=== PATIENT | male | born 1950 | race Caucasian/White ===

== ENCOUNTER → 2020-07-17 14:03 | Outpatient (CLI) | payer MEDICARE, BC, SELFPAY ==
[2020-07-18 10:13] LABS: COVID19 Sendout Not Detected (Not Detect)
== END ==
PROVIDERS: Visit Provider Physician Assistant
DX: Z11.59 Encounter for screening for other viral diseases (principal)
CPT/HCPCS: 87635

== ENCOUNTER 2020-09-18 14:00 | Outpatient (RCR) | payer MEDICARE, BC, SELFPAY | END 2020-09-18 15:00 | LOC: CAR 14:00 | PROVIDERS: Referring Provider Internal Medicine Cardiovascular Disease; Visit Provider Internal Medicine Cardiovascular Disease | DX: Z95.1 Presence of aortocoronary bypass graft (principal); Z95.5 Presence of coronary angioplasty implant and graft | CPT/HCPCS: 93798 ==

== ENCOUNTER → 2021-03-20 10:34 | Outpatient (CLI) | payer MEDICARE, BC, SELFPAY | PROVIDERS: Referring Provider Internal Medicine Cardiovascular Disease; Visit Provider Internal Medicine Cardiovascular Disease | DX: I48.0 Paroxysmal atrial fibrillation (principal) | CPT/HCPCS: 93005 ==

== ENCOUNTER 2021-03-21 10:04 | Emergency (ER) | payer MEDICARE, BC, SELFPAY ==
[2021-03-21] VITALS (19 sets, daily range): BP systolic 97–141; BP diastolic 55–98; PULSE 49–149; RESP 11–29; TEMP 36.7; O2SAT 95–100; BMI 27.8
--- NOTE | 2021-03-21 10:23 | DI.RAD.S_ITS ---
PROCEDURE: XR CHEST 1V INDICATIONS: chest pain TECHNIQUE: One view of the chest was acquired. COMPARISON: None. FINDINGS: Surgical changes and devices: None. Lungs and pleura: Lungs are clear. No pleural effusions or pneumothorax. Mediastinum: Mediastinal contours appear normal. Heart size is normal. Bones and chest wall: No suspicious bony lesions. Mild levoconvex scoliotic curvature is noted. Age-appropriate bony degenerative changes are seen. Overlying soft tissues appear unremarkable. IMPRESSION: Normal portable chest. Dictated by: Krishna Stone M.D. on 03/21/2021 at 9:49 Approved by: Krishna Stone M.D. on 03/21/2021 at 9:50
[2021-03-21 10:31] LABS: Add Manual Diff / Slide Review NO; Basophils Absolute Auto 0 /uL (0-100); Basophils Percent Auto 0.6 % (0-2); Eosinophils Absolute Auto 0 /uL (0-450); Eosinophils Percent Auto 0.9 % (2-4); Hemoglobin 14.9 g/dL (13.5-17.5); Lymphocytes Absolute Auto 1300 /uL (1100-4500); Lymphocytes Percent Auto 23.8 % (25-40); Mean Corpuscular HGB Conc 34.7 % (30-36); Mean Corpuscular Hemoglobin 33.5 PG (26-34); Mean Corpuscular Volume 96.6 fL (80-100); Monocytes Absolute Auto 600 /uL (0-900); Monocytes Percent Auto 11.4 % (3-14); Neutrophils Absolute Auto 3300 /uL (1500-7000); Neutrophils Percent Auto 63.3 % (50-75); Platelet Count 181 X10^3/uL (150-400); Red Blood Cell Count 4.45 X10^6/uL (4.5-5.9); White Blood Cell Count 5.2 X10^3/uL (4.5-11.0)
[2021-03-21 10:32] LABS: INR 1.2 (0.9-1.3); Prothrombin Time 13.7 SECONDS (10.1-12.7)
[2021-03-21 10:34] LABS: PTT Partial Thromboplastin Tim 34 SECONDS (26.4-36.2)
[2021-03-21 10:36] LABS: Alanine Aminotransferase 96 IU/L (<50); Albumin 4.4 g/dL (3.5-5.0); Albumin Globulin Ratio 1.5 (1.0-2.8); Alkaline Phosphatase 74 U/L (38-126); Aspartate Aminotransferase 130 IU/L (17-59); Bilirubin Total 0.8 mg/dL (0.2-1.3); Blood Urea Nitrogen 9 mg/dL (9-20); Calcium 9.3 mg/dL (8.4-10.2); Carbon Dioxide 26 mmol/L (22-32); Chloride 93 mmol/L (98-107); Creatine Kinase 97 U/L (55-170); Estimated Glomerular Filt Rate > 60.0 mL/min (>60); Globulin 2.9 g/dL (1.7-4.1); Glucose 147 mg/dL (80-110); HEMOLYSIS 19 (0-50); Lipase 49 U/L (23-300); Sodium 129 mmol/L (137-145); Total Protein 7.3 g/dL (6.3-8.2)
[2021-03-21 10:48] LABS: Troponin I < 0.012 ng/mL (0.01-0.034)
--- NOTE | 2021-03-21 10:50 | ED.ARRPALP ---
HPI - Arrhythmia/Palpitations General Chief Complaint: Arrhythmia/Palpitations Stated Complaint: AFIB Time Seen by Provider: 03/21/21 10:36 Source: patient Mode of arrival: Ambulatory Limitations: no limitations History of Present Illness HPI narrative: Patient is a 71-year-old male. Has a history of paroxysmal atrial fibrillation. Is on Eliquis and he states that he has taken it every day, 2 times a day, for at least the past year. He is here for evaluation of palpitations and irregular heart rhythm. He contacted his doctor who is out of state when the symptoms started yesterday and had an outpatient EKG yesterday. He came in today looking for cardioversion. He has had 2 cardioversions in the past. Related Data Allergies Allergy/AdvReac Type Severity Reaction Status Date / Time No Known Drug Allergies Allergy Verified 03/21/21 10:13 Review of Systems Constitutional Constitutional: Denies fatigue, Denies fever(s) and Denies headache(s) Eyes Eyes: Denies change in vision ENT Ears, Nose, Mouth, and Throat: Denies headache(s) and Denies sore throat Cardiovascular Cardiovascular: Denies chest pain, Reports rapid heart rate, Reports irregular heart rhythm and Denies dyspnea Respiratory Respiratory: Denies cough and Denies dyspnea Gastrointestinal Gastrointestinal: Denies abdominal pain, Denies nausea and Denies vomiting Genitourinary Genitourinary: Denies dysuria Genitourinary: Denies dysuria Musculoskeletal Musculoskeletal: Denies arthralgias and Denies myalgias Integumentary/Breasts Skin/Breast: Denies lesions and Denies rash Neurologic Neurologic: Denies behavioral changes and Denies headache(s) Psychiatric Psychiatric: Denies behavioral changes Endocrine Endocrine: Denies fatigue Hematologic/Lymphatic On Anticoagulants: Yes Allergic/Immunologic Allergic/Immunologic: Denies urticaria Patient History Medical History Atrial fibrillation Social History Smoking Status: Unknown if ever smoked Smoking Status: Unknown if ever smoked alcohol intake frequency: holidays/special occasions only Substance Use Type: does not use Exam Initial Vital Signs Initial Vital Signs: Vital Signs Temperature 98.1 F 03/21/21 10:08 Pulse Rate 76 03/21/21 10:08 Respiratory Rate 20 03/21/21 10:08 Blood Pressure 141/98 H 03/21/21 10:08 Pulse Oximetry 97 03/21/21 10:08 Const General: cooperative and comfortable Limitations: mental status not altered HENMT Head: normal to inspection and normocephalic Eyes General: appearance normal, both eyes and all related structures Resp Effort & Inspection: normal respiratory effort Auscultation: clear to auscultation bilaterally Cardio Rate: tachycardic Rhythm: abnormal rhythm Pulses: radial pulses present GI Palpation: soft Skin Lesions: no lesions Rashes: no rashes Neuro General: patient alert, patient awake and patient oriented x3 Cognition: normal cognition Speech: speech normal Extrem General: normal to inspection and capillary refill normal Psych Appearance: grossly normal and well kempt Procedures Cardioversion Consent Signed: Yes Indication: AFib with RVR Stability: Stable Number of attempts (shocks): 1 Joules used: 120 Cardiac rhythm post-cardioversion: Sinus rhythm Procedural Sedation Consent signed: Yes Time out performed: Yes Indication: cardioversion Presedation Evaluation: AFib with RVR ASA Class: II Mallampati Airway Classification: Class II Preparation: cardiac nurse specialist applied, pulse oximeter, capnometry used, supplemental O2 applied and suction/airway equipment at bedside Fentanyl: IV Fentanyl dose (mcg): 13 IV Propofol dose (mg): 100 Intraservice time/total sedation time (min): 10 ED Sedation Level: Moderate (Concious) Patient Tolerated Procedure: Well Interventions: Airway repositioned Course Orders Ordered: ED Orders 03/21/21 10:15 Complete Blood Count AUTO DIFF Stat Comprehensive Metabolic Panel Stat Lipase Stat Partial Thromboplastin Time Stat Prothrombin Time INR Stat Troponin & CK Cardiac Panel Stat EKG-12 Lead Stat 03/21/21 10:23 XR chest 1V Stat 03/21/21 10:24 COVID19 -Nasal swab/Pre-Proc Stat 03/21/21 10:50 EKG-12 Lead Stat RT Consult Eval and Treat Now Discontinued Medications Fentanyl (Fentanyl 100 Mcg/2 Ml Inj) 12.5 mcg IV NOW ONE Stop: 03/21/21 10:51 Last Admin: 03/21/21 11:54 Dose: 12.5 mcg Documented by: FRANCISCOS Sodium Chloride (Normal Saline 0.9%) 1,000 mls @ 125 mls/hr IV CONT NATALI Last Infusion: 03/21/21 12:43 Dose: 0 mls/hr Documented by: Admin: 03/21/21 11:45 Dose: 125 mls/hr Documented by: GILL Propofol (Propofol 200 Mg/20 Ml Vial) 100 mg IV NOW ONE Stop: 03/21/21 10:51 Last Admin: 03/21/21 11:56 Dose: 100 mg Documented by: GILL Vital Signs Vital signs: Vital Signs - 8 hr 03/21/21 10:08 03/21/21 10:10 03/21/21 10:30 Temperature 98.1 F Pulse Rate 76 77 105 H Respiratory Rate 20 18 Blood Pressure 141/98 H 141/98 H 117/76 Pulse Oximetry 97 97 98 03/21/21 11:00 03/21/21 11:30 03/21/21 11:35 Temperature Pulse Rate 102 H 92 H 110 H Respiratory Rate 11 L 16 17 Blood Pressure 114/73 107/71 110/67 Pulse Oximetry 95 97 97 03/21/21 11:40 03/21/21 11:45 03/21/21 11:50 Temperature Pulse Rate 106 H 112 H 111 H Respiratory Rate 23 17 13 Blood Pressure 115/77 120/68 109/77 Pulse Oximetry 98 97 99 03/21/21 11:55 03/21/21 12:00 03/21/21 12:05 Temperature Pulse Rate 113 H 129 H 55 L Respiratory Rate 21 18 29 H Blood Pressure 121/65 103/73 103/64 Pulse Oximetry 98 95 96 03/21/21 12:10 03/21/21 12:15 03/21/21 12:20 Temperature Pulse Rate 53 L 51 L 51 L Respiratory Rate 26 H 17 21 Blood Pressure 98/55 L 97/59 L 105/64 Pulse Oximetry 97 96 97 03/21/21 12:25 03/21/21 12:30 03/21/21 12:35 Temperature Pulse Rate 49 L 49 L 49 L Respiratory Rate 20 21 19 Blood Pressure 108/65 108/67 111/63 Pulse Oximetry 97 99 100 03/21/21 13:00 Temperature Pulse Rate 50 L Respiratory Rate 14 Blood Pressure 119/66 Pulse Oximetry 100 MDM - Arrhythmia/Palpitations Medical Records Attestation: I reviewed the patient's medical records. Lab Data Attestation: I reviewed the patient's lab results. Result diagrams: 03/21/21 10:15 03/21/21 10:15 Labs: Lab Results 03/21/21 03/21/21 03/21/21 Range/Units 10:15 10:15 10:15 WBC 5.2 (4.5-11.0) X10^3/uL RBC 4.45 L (4.5-5.9) X10^6/uL Hgb 14.9 (13.5-17.5) g/dL Hct 43.0 (41-53) % MCV 96.6 (80-100) fL MCH 33.5 (26-34) PG MCHC 34.7 (30-36) % RDW 20.0 H (11.6-14.8) % Plt Count 181 (150-400) X10^3/uL Neut % (Auto) 63.3 (50-75) % Lymph % (Auto) 23.8 L (25-40) % [place] % (Auto) 11.4 (3-14) % Eos % (Auto) 0.9 L (2-4) % Baso % (Auto) 0.6 (0-2) % Neut # (Auto) 3300 (0786-6510) /uL Lymph # (Auto) 1300 (5334-3968) /uL [place] # (Auto) 600 (0-900) /uL Eos # (Auto) 0 (0-450) /uL Baso # (Auto) 0 (0-100) /uL PT 13.7 H (10.1-12.7) SECONDS INR 1.2 (0.9-1.3) APTT 34 (26.4-36.2) SECONDS Sodium 129 L (137-145) mmol/L Potassium 4.0 (3.4-5.1) mmol/L Chloride 93 L (98-107) mmol/L Carbon Dioxide 26 (22-32) mmol/L BUN 9 (9-20) mg/dL Creatinine 0.75 (0.66-1.25) mg/dL Estimated GFR > 60.0 (>60) mL/min BUN/Creatinine Ratio 12.0 (6-22) Glucose 147 H (80-110) mg/dL Calcium 9.3 (8.4-10.2) mg/dL Total Bilirubin 0.8 (0.2-1.3) mg/dL AST 130 H (17-59) IU/L ALT 96 H (<50) IU/L Alkaline Phosphatase 74 (38-126) U/L Total Creatine Kinase 97 (55-170) U/L CK-MB (CK-2) TNP CK-MB (CK-2) Rel Index TNP Troponin I < 0.012 (0.01-0.034) ng/mL Total Protein 7.3 (6.3-8.2) g/dL Albumin 4.4 (3.5-5.0) g/dL Globulin 2.9 (1.7-4.1) g/dL Albumin/Globulin Ratio 1.5 (1.0-2.8) Lipase 49 (23-300) U/L SARS-CoV-2 (PCR) (Negative) 03/21/21 Range/Units 10:24 WBC (4.5-11.0) X10^3/uL RBC (4.5-5.9) X10^6/uL Hgb (13.5-17.5) g/dL Hct (41-53) % MCV (80-100) fL MCH (26-34) PG MCHC (30-36) % RDW (11.6-14.8) % Plt Count (150-400) X10^3/uL Neut % (Auto) (50-75) % Lymph % (Auto) (25-40) % [place] % (Auto) (3-14) % Eos % (Auto) (2-4) % Baso % (Auto) (0-2) % Neut # (Auto) (1357-2487) /uL Lymph # (Auto) (7599-5954) /uL [place] # (Auto) (0-900) /uL Eos # (Auto) (0-450) /uL Baso # (Auto) (0-100) /uL PT (10.1-12.7) SECONDS INR (0.9-1.3) APTT (26.4-36.2) SECONDS Sodium (137-145) mmol/L Potassium (3.4-5.1) mmol/L Chloride (98-107) mmol/L Carbon Dioxide (22-32) mmol/L BUN (9-20) mg/dL Creatinine (0.66-1.25) mg/dL Estimated GFR (>60) mL/min BUN/Creatinine Ratio (6-22) Glucose (80-110) mg/dL Calcium (8.4-10.2) mg/dL Total Bilirubin (0.2-1.3) mg/dL AST (17-59) IU/L ALT (<50) IU/L Alkaline Phosphatase (38-126) U/L Total Creatine Kinase (55-170) U/L CK-MB (CK-2) CK-MB (CK-2) Rel Index Troponin I (0.01-0.034) ng/mL Total Protein (6.3-8.2) g/dL Albumin (3.5-5.0) g/dL Globulin (1.7-4.1) g/dL Albumin/Globulin Ratio (1.0-2.8) Lipase (23-300) U/L SARS-CoV-2 (PCR) Negative (Negative) Imaging Data Chest x-ray: Radiologist's Impresson: [address] [id number] ReportSigned Patient: Ambrocio [facility]#: [id number]: 1950Acct:[id number]/Sex: 71 / MDate of Service: 03/21/21Loc: EDAccession Number: [id number] Procedure: XR chest 1V Ordering Provider: Cuate Toro D.O. PROCEDURE: XR CHEST 1V INDICATIONS: chest pain TECHNIQUE: One view of the chest was acquired. COMPARISON: None. FINDINGS: Surgical changes and devices: None. Lungs and pleura: Lungs are clear. No pleural effusions or pneumothorax. Mediastinum: Mediastinal contours appear normal. Heart size is normal. Bones and chest wall: No suspicious bony lesions. Mild levoconvex scoliotic curvature is noted. Age-appropriate bony degenerative changes are seen. Overlying soft tissues appear unremarkable. IMPRESSION: Normal portable chest. Dictated by: Krishna Stone M.D. on 03/21/2021 at 9:49 Approved by: Krishna Stone M.D. on 03/21/2021 at 9:50 ECG Data Attestation: I personally reviewed and interpreted this ECG as follows: Prior ECG tracings: not available for review Interpretation: Atrial fibrillation Ventricular rate of 111 Left axis deviation Normal QRS Normal QTC Incomplete right bundle-branch block Post cardioversion EKG Sinus bradycardia Ventricular rate of 55 Normal axis Normal QRS Normal QTC No ST T wave changes MDM Narrative Medical decision making narrative: Successful sedation and cardioversion. Patient was sinus rhythm afterwards. He recovered from the sedation without problems. Will have him continue all of his medications and contact his primary provider for follow-up. He was given return precautions. He expressed understanding and agreement. Discharge Plan Departure Patient Disposition: Home Clinical Impression: Atrial fibrillation, currently in sinus rhythm Instructions: DI for Atrial Fibrillation Activity Restrictions/Additional Instructions: Recommend you continue all of your medications as directed. Contact your primary provider for follow-up. Return to the emergency department for any new or worsening symptoms
[2021-03-21 11:26] LABS: COVID19 -Nasal RAPID Negative (Negative)
[2021-03-21] MEDS: SODIUM CHLORIDE 0.9% 1,000 ML 125 ML IV (11:45)
[2021-03-21] MEDS: fentaNYL 100 MCG/2 ML INJ 12.5 MCG IV (11:54)
[2021-03-21] MEDS: propofoL 200 MG/20 ML VIAL 100 MG IV (11:56)
== END 2021-03-21 13:21 | disposition home or self-care (01) ==
PROVIDERS: Emergency Provider Emergency Medicine
DX: I48.91 Unspecified atrial fibrillation (principal); Z79.01 Long term (current) use of anticoagulants; Z86.79 Personal history of other diseases of the circulatory system
CPT/HCPCS: 36415; 71045; 80053; 82550; 83690; 84484; 85025; 85610; 85730; 87635; 92960; 93005; 96360; 99152; 99285; C9803; J2704; J3010

== ENCOUNTER → 2021-04-04 11:03 | Outpatient (CLI) | payer MEDICARE, BC, SELFPAY ==
[2021-04-05 09:06] LABS: PSA Free % 32.3 % (.); PSA, Total 3.5 ng/mL (0.0-4.0)
== END ==
PROVIDERS: Referring Provider Urology; Visit Provider Urology
DX: R97.20 Elevated prostate specific antigen [PSA] (principal)
CPT/HCPCS: 36415; 84153; 84154

== ENCOUNTER → 2021-04-12 11:02 | Outpatient (CLI) | payer MEDICARE, BC, SELFPAY ==
[2021-04-13 10:37] LABS: PSA Free % 35.5 % (.); PSA, Total 3.8 ng/mL (0.0-4.0)
== END ==
PROVIDERS: Referring Provider Urology; Visit Provider Urology
DX: R97.20 Elevated prostate specific antigen [PSA] (principal)
CPT/HCPCS: 36415; 84153; 84154

== ENCOUNTER → 2021-04-17 10:35 | Outpatient (CLI) | payer MEDICARE, BC, SELFPAY ==
[2021-04-18 08:42] LABS: PSA, Total 4.3 ng/mL (0.0-4.0)
== END ==
PROVIDERS: Referring Provider Urology; Visit Provider Urology
DX: R97.20 Elevated prostate specific antigen [PSA] (principal)
CPT/HCPCS: 36415; 84153; 84154

== ENCOUNTER → 2021-04-19 10:51 | Outpatient (CLI) | payer MEDICARE, BC, SELFPAY | PROVIDERS: Referring Provider Internal Medicine Cardiovascular Disease; Visit Provider Internal Medicine Cardiovascular Disease | DX: I48.0 Paroxysmal atrial fibrillation (principal) | CPT/HCPCS: 93005 ==

== ENCOUNTER 2021-08-29 18:18 | Emergency (ER) | payer MEDICARE, BC, SELFPAY ==
[2021-08-29] VITALS (12 sets, daily range): BP systolic 133–145; BP diastolic 68–75; PULSE 55–69; RESP 16–18; TEMP 36.1; O2SAT 93–98; BMI 27.4
--- NOTE | 2021-08-29 18:28 | DI.RAD.S_ITS ---
PROCEDURE: XR PELVIS 1-2V INDICATIONS: fall down stairs v syncope TECHNIQUE: 1 view(s) of the pelvis acquired. COMPARISON: None. FINDINGS: Bones: No fractures or dislocations. No suspicious bony lesions. Soft tissues: Visualized bowel gas pattern is normal. No suspicious soft tissue calcifications. IMPRESSION: No fracture. No osseous lesion. If symptoms and/or clinical suspicion for pathology persists, further assessment with repeat radiographs (7-10 days) or advanced imaging (e.g. CT, MRI or bone scan) should be considered. Dictated by: Luana Devries MD, PhD on 08/29/2021 at 18:51 Approved by: Luana Devries MD, PhD on 08/29/2021 at 18:52
--- NOTE | 2021-08-29 18:28 | DI.RAD.S_ITS ---
PROCEDURE: XR CHEST 1V INDICATIONS: fall down stairs v syncope TECHNIQUE: One view of the chest was acquired. COMPARISON: [facility], CR, XR CHEST 1V, 03/21/2021, 10:40. FINDINGS: Surgical changes and devices: None. Lungs and pleura: Lungs are clear. No pleural effusions or pneumothorax. Mediastinum: Mediastinal contours appear normal. Heart size is normal. Bones and chest wall: No suspicious bony lesions. Overlying soft tissues appear unremarkable. IMPRESSION: No acute cardiopulmonary disease process. Dictated by: Luana Devries MD, PhD on 08/29/2021 at 18:52 Approved by: Luana Devries MD, PhD on 08/29/2021 at 18:52
--- NOTE | 2021-08-29 18:28 | DI.CT.S_ITS ---
PROCEDURE: CT CERVICAL SPINE WO CON INDICATIONS: Trauma TECHNIQUE: Noncontrast 3 mm thick sections acquired from the skull base to the T4 level. Sagittal and coronal reformats were then constructed. For radiation dose reduction, the following was used: automated exposure control, adjustment of mA and/or kV according to patient size. COMPARISON: None. FINDINGS: Image quality: Degraded by patient motion artifact. Bones: No fractures or dislocations. Visualized superior ribs are intact. Spine degenerative disc disease and facet arthropathy. Soft tissues: Prevertebral soft tissues are normal in thickness. No paravertebral hematomas. No apical pneumothoraces. IMPRESSION: No fracture. No acute osseous lesion. If symptoms and/or clinical suspicion for pathology persists, evaluation with MRI should be considered for further assessment. Dictated by: Luana Devries MD, PhD on 08/29/2021 at 19:07 Approved by: Luana Devries MD, PhD on 08/29/2021 at 19:10
--- NOTE | 2021-08-29 18:29 | ED.TRAUMA ---
HPI - Trauma General Chief Complaint: Trauma Stated Complaint: Fall, on thinners Time Seen by Provider: 08/29/21 18:18 Source: EMS Mode of arrival: EMS Limitations: no limitations History of Present Illness HPI narrative: This is a 71-year-old male who had an unwitnessed fall but was heard by his partner. Patient was coming down the steps. On the 4th or 6 steps from the floor when there was thump. Patient was confused for EMS but has improved his mentation during transit. He now knows his name, the year and age. Patient is able to answer majority of questions for myself. He does not recall the event. He does remember having drinks earlier today and states he probably had about a pint of alcohol. He states he usually has about 1 alcoholic drink nightly. Patient states he does take medication for hypertension, atrial fibrillation, dyslipidemia and diabetes. He states he takes an aspirin daily. He does not recall the name of his medications. He denies any prior surgeries. No known drug allergies. No tobacco, no illicit or recreational drugs noted. Patient denies any pain at this time. He denies any other symptoms. EMS did note he had an abrasion on his posterior scalp. He is unsure of his tetanus status. Patient states he splits his time between [place] and [place]. His primary care provider is in [place]. Related Data Allergies Allergy/AdvReac Type Severity Reaction Status Date / Time No Known Drug Allergies Allergy Verified 08/29/21 18:27 Review of Systems Review of Systems ROS Unobtainable: All systems reviewed & are unremarkable except as noted in HPI and below Patient History Medical History Atrial fibrillation Social History Smoking Status: Unknown if ever smoked Smoking Status: Unknown if ever smoked alcohol intake frequency: holidays/special occasions only Substance Use Type: does not use Exam Narrative Exam Narrative: GEN: Patient appears in mild distress. Patient does have odor of etoh on exam. HEAD: Patient has a small 1 cm abrasion on the posterior scalp, no raccoon/Hoffman sign. NECK: Nontender, painless range of motion, trachea midline Positive for Nexus criteria, there is no mid line tenderness, distracting injury, altered mental status, neuro deficit, positive for recent EtOH. EYES: PERRLA, EOMI ENT: External inspection normal, trachea is midline, TM's are normal no hemotypanum, Nares are clear, no septal hematoma, no dental or oral injury, airway is normal and with normal occlusion, No bony tenderness RESP: Chest is nontender and has symmetric movement, no ecchymosis, breath sounds are normal no crackles, wheezes or rales CVS: Heart sounds are normal, no murmur noted, No JVD. ABG/GI: Nontender, soft, normal bowel sounds, no distention, no organomegaly, pelvic rock is negative NEURO: Oriented AOx3, neuro is grossly intact, sensation and motor is normal all 4 extremities moving, cranial nerves II through XII are intact, GCS is 15 PSYCH: Normal mood and affect SKIN: Intact, warm and dry, no crepitus and without decubitus BACK: No CVA tenderness, no vertebral tenderness, no step-off's, no crepitus EXT: Atraumatic, hips are nontender, no pedal edema, normal color and temperature, normal range of motion of extremities with normal tendon exam, 2+ pulses in all four extremities Initial Vital Signs Initial Vital Signs: Vital Signs Pulse Oximetry 97 08/29/21 18:20 Scores GCS [place] coma scale eye opening: Spontaneous Phillip coma scale verbal response: Orientated Phillip coma scale motor response: Obey commands Phillip coma scale total score: 15 Course Orders Ordered: ED Orders 08/29/21 18:28 CT cervical spine wo con Stat XR chest 1V Stat XR pelvis 1-2V Stat 08/29/21 18:34 CT head/brain wo con Stat 08/29/21 18:39 Comprehensive Metabolic Panel Stat Ethanol (ETOH) Stat Lipase Stat Partial Thromboplastin Time Stat Prothrombin Time INR Stat Troponin & CK Cardiac Panel Stat 08/29/21 18:40 Complete Blood Count AUTO DIFF Stat Type and Screen Stat 08/29/21 19:01 EKG-12 Lead Stat 08/29/21 20:31 Urine Drug Screen, Rapid Stat Discontinued Medications Diphtheria/Tetanus/Acell Pertussis (Tet,Diph,Pertuss(Acell),Vac/Pf 0.5 Ml Syringe) 0.5 ml IM .ONCE ONE Stop: 08/29/21 18:33 Last Admin: 08/29/21 18:58 Dose: 0.5 ml Documented by: ANNELIESE Sodium Chloride (Normal Saline 0.9%) 1,000 mls @ 150 mls/hr IV CONT NATALI Last Admin: 08/29/21 18:58 Dose: 150 mls/hr Documented by: ANNELIESE Vital Signs Vital signs: Vital Signs - 8 hr 08/29/21 18:20 08/29/21 18:21 08/29/21 18:23 Temperature 97.0 F L Pulse Rate 69 Respiratory Rate 18 Blood Pressure 145/68 H Pulse Oximetry 97 95 08/29/21 18:30 08/29/21 19:00 08/29/21 19:30 Temperature Pulse Rate 55 L 62 61 Respiratory Rate 16 Blood Pressure 133/68 Pulse Oximetry 94 97 96 08/29/21 20:00 08/29/21 20:31 08/29/21 21:00 Temperature Pulse Rate 63 62 59 L Respiratory Rate Blood Pressure Pulse Oximetry 96 93 95 08/29/21 22:15 08/29/21 22:16 08/29/21 22:30 Temperature Pulse Rate 65 65 64 Respiratory Rate Blood Pressure 139/75 Pulse Oximetry 97 96 98 MDM - Trauma Lab Data Result diagrams: 08/29/21 18:40 08/29/21 18:39 Labs: Lab Results 08/29/21 08/29/21 08/29/21 Range/Units 18:39 18:39 18:40 WBC 6.4 (4.5-11.0) X10^3/uL RBC 4.66 (4.5-5.9) X10^6/uL Hgb 16.3 (13.5-17.5) g/dL Hct 48.4 (41-53) % MCV 103.8 H (80-100) fL MCH 34.9 H (26-34) PG MCHC 33.6 (30-36) % RDW 13.5 (11.6-14.8) % Plt Count 148 L (150-400) X10^3/uL Neut % (Auto) 42.4 L (50-75) % Lymph % (Auto) 44.5 H (25-40) % [place] % (Auto) 11.4 (3-14) % Eos % (Auto) 0.7 L (2-4) % Baso % (Auto) 1.0 (0-2) % Neut # (Auto) 2700 (0948-8380) /uL Lymph # (Auto) 2800 (2650-7397) /uL [place] # (Auto) 700 (0-900) /uL Eos # (Auto) 0 (0-450) /uL Baso # (Auto) 100 (0-100) /uL PT 11.9 (10.1-12.7) SECONDS INR 1.1 (0.9-1.3) APTT 33 (26.4-36.2) SECONDS Sodium 138 (137-145) mmol/L Potassium 3.9 (3.4-5.1) mmol/L Chloride 100 (98-107) mmol/L Carbon Dioxide 26 (22-32) mmol/L BUN 8 L (9-20) mg/dL Creatinine 0.59 L (0.66-1.25) mg/dL Estimated GFR > 60.0 (>60) mL/min BUN/Creatinine Ratio 13.6 (6-22) Glucose 95 (80-110) mg/dL Calcium 9.2 (8.4-10.2) mg/dL Total Bilirubin 1.2 (0.2-1.3) mg/dL AST 147 H (17-59) IU/L ALT 103 H (<50) IU/L Alkaline Phosphatase 93 (38-126) U/L Total Creatine Kinase 173 H (55-170) U/L CK-MB (CK-2) 1.20 (<2.37) ng/mL CK-MB (CK-2) Rel Index 0.7 L (1.5-5.0) % Troponin I < 0.012 (0.01-0.034) ng/mL Total Protein 7.5 (6.3-8.2) g/dL Albumin 4.4 (3.5-5.0) g/dL Globulin 3.1 (1.7-4.1) g/dL Albumin/Globulin Ratio 1.4 (1.0-2.8) Lipase 223 (23-300) U/L U Opiates 300ng/mL cut (Negative) Ur Oxycodone Screen (Negative) Urine Methadone Screen (Negative) Ur Barbiturates Screen (Negative) U Tricyclic Antidepress (Negative) Ur Phencyclidine Scrn (Negative) Ur Amphetamines Screen (Negative) U Methamphetamines Scrn (Negative) Ur MDMA Scrn (Ecstasy) (Negative) U Benzodiazepines Scrn (Negative) Urine Cocaine Screen (Negative) U Marijuana (THC) Screen (Negative) Ethyl Alcohol 365 H ( - 10) mg/dL Blood Type Antibody Screen 08/29/21 08/29/21 Range/Units 18:40 20:31 WBC (4.5-11.0) X10^3/uL RBC (4.5-5.9) X10^6/uL Hgb (13.5-17.5) g/dL Hct (41-53) % MCV (80-100) fL MCH (26-34) PG MCHC (30-36) % RDW (11.6-14.8) % Plt Count (150-400) X10^3/uL Neut % (Auto) (50-75) % Lymph % (Auto) (25-40) % [place] % (Auto) (3-14) % Eos % (Auto) (2-4) % Baso % (Auto) (0-2) % Neut # (Auto) (1507-6376) /uL Lymph # (Auto) (8228-0154) /uL [place] # (Auto) (0-900) /uL Eos # (Auto) (0-450) /uL Baso # (Auto) (0-100) /uL PT (10.1-12.7) SECONDS INR (0.9-1.3) APTT (26.4-36.2) SECONDS Sodium (137-145) mmol/L Potassium (3.4-5.1) mmol/L Chloride (98-107) mmol/L Carbon Dioxide (22-32) mmol/L BUN (9-20) mg/dL Creatinine (0.66-1.25) mg/dL Estimated GFR (>60) mL/min BUN/Creatinine Ratio (6-22) Glucose (80-110) mg/dL Calcium (8.4-10.2) mg/dL Total Bilirubin (0.2-1.3) mg/dL AST (17-59) IU/L ALT (<50) IU/L Alkaline Phosphatase (38-126) U/L Total Creatine Kinase (55-170) U/L CK-MB (CK-2) (<2.37) ng/mL CK-MB (CK-2) Rel Index (1.5-5.0) % Troponin I (0.01-0.034) ng/mL Total Protein (6.3-8.2) g/dL Albumin (3.5-5.0) g/dL Globulin (1.7-4.1) g/dL Albumin/Globulin Ratio (1.0-2.8) Lipase (23-300) U/L U Opiates 300ng/mL cut Negative (Negative) Ur Oxycodone Screen Negative (Negative) Urine Methadone Screen Negative (Negative) Ur Barbiturates Screen Negative (Negative) U Tricyclic Antidepress Negative (Negative) Ur Phencyclidine Scrn Negative (Negative) Ur Amphetamines Screen Negative (Negative) U Methamphetamines Scrn Negative (Negative) Ur MDMA Scrn (Ecstasy) Negative (Negative) U Benzodiazepines Scrn Negative (Negative) Urine Cocaine Screen Negative (Negative) U Marijuana (THC) Screen Negative (Negative) Ethyl Alcohol ( - 10) mg/dL Blood Type O Positive Antibody Screen Negative Urine Dip Bedside Urine Glucose Negative Bedside Urine Bilirubin - Negative Bedside Urine Ketone - Negative Urine Specific [place] 1.010 Bedside Urine Occult Blood - Negative Bedside Urine pH 6 Bedside Urine Protein - Negative Bedside Urine Urobilinogen - Negative Bedside Urine Nitrite - Negative Bedside Urine Leukocytes - Negative Esterase Imaging Data CT scan - head: Radiologist's Impression: Launch?[place] [address] CT Scan Report Signed Patient: Ambrocio Gilbert MR#: [id number] : 1950 Acct:[id number] Age/Sex: 71 / M Date of Service: 08/29/21 Loc: ED Accession Number: [id number] ?? Procedure: CT head/brain wo con Ordering Provider: Emy Dukes D.O. PROCEDURE:? CT HEAD/BRAIN WO CON ? INDICATIONS:? fall v syncope ? TECHNIQUE:? Noncontrast 4.5 mm thick angled axial sections acquired from the foramen magnum to the vertex, with coronal and sagittal reformats.? For radiation dose reduction, the following was used:? automated exposure control, adjustment of mA and/or kV according to patient size.? ? COMPARISON:? None. ? FINDINGS:? Image quality:? Excellent.? ? CSF spaces:? Basal cisterns are patent.? No extra-axial fluid collections.? The ventricles are symmetric in size and shape.? ? Brain:? No intracranial bleeds or masses.? There is cerebral volume loss for age, with resultant ventricular and sulcal prominence.? There are periventricular and deep white matter chronic small vessel ischemic changes.? There is intracranial internal carotid artery and vertebral artery atherosclerosis.? ? Skull and face:? Calvarium and visualized facial bones appear intact, without suspicious lesions.? Small right parietal scalp contusion.? ? Sinuses:? Mild mucosal thickening in the maxillary sinuses.? The mastoids are clear.? ? IMPRESSION:? No acute intracranial disease process. ? ? Dictated by: Luana Devries MD, PhD on 08/29/2021 at 19:10 ? ? Approved by: Luana Devries MD, PhD on 08/29/2021 at 19:12?? CT - cervical spine: Radiologist's Impression: [place] [id number] CT Scan Report Signed Patient: Ambrocio Gilbert MR#: [id number] : 1950 Acct:[id number] Age/Sex: 71 / M Date of Service: 08/29/21 Loc: ED Accession Number: [id number] ?? Procedure: CT cervical spine wo con Ordering Provider: Emy Dukes D.O. PROCEDURE:? CT CERVICAL SPINE WO CON ? INDICATIONS:? Trauma ? TECHNIQUE:? Noncontrast 3 mm thick sections acquired from the skull base to the T4 level.? Sagittal and coronal reformats were then constructed.? For radiation dose reduction, the following was used:? automated exposure control, adjustment of mA and/or kV according to patient size.? ? COMPARISON:? None. ? FINDINGS:? Image quality:? Degraded by patient motion artifact. ? Bones:? No fractures or dislocations.? Visualized superior ribs are intact. Spine degenerative disc disease and facet arthropathy. ? Soft tissues:? Prevertebral soft tissues are normal in thickness.? No paravertebral hematomas.? No apical pneumothoraces.? ? ? IMPRESSION:? No fracture. No acute osseous lesion. If symptoms and/or clinical suspicion for pathology persists, evaluation with MRI should be considered for further assessment. ? ? Dictated by: Luana Devries MD, PhD on 08/29/2021 at 19:07 ? ? Approved by: Luana Devries MD, PhD on 08/29/2021 at 19:10 Chest x-ray: Radiologist's Impression: [address] [address] XRay Report Signed Patient: Ambrocio Gilbert MR#: [id number] : 1950 Acct:[id number] Age/Sex: 71 / M Date of Service: 08/29/21 Loc: ED Accession Number: [id number] ?? Procedure: XR chest 1V Ordering Provider: Emy Dukes D.O. PROCEDURE:? XR CHEST 1V ? INDICATIONS:? fall down stairs v syncope ? TECHNIQUE:? One view of the chest was acquired.? ? COMPARISON:? [facility], , XR CHEST 1V, 03/21/2021, 10:40. ? FINDINGS:? ? Surgical changes and devices:? None.? ? Lungs and pleura:? Lungs are clear.? No pleural effusions or pneumothorax.? ? Mediastinum:? Mediastinal contours appear normal.? Heart size is normal.? ? Bones and chest wall:? No suspicious bony lesions.? Overlying soft tissues appear unremarkable.? ? IMPRESSION:? No acute cardiopulmonary disease process. ? ? Dictated by: Luana Devries MD, PhD on 08/29/2021 at 18:52 ? ? Approved by: Luana Devries MD, PhD on 08/29/2021 at 18:52?? [facility] xray: Radiologist's Impression: Launch?Image [address] [address] XRay Report Signed Patient: Ambrocio Gilbert MR#: [id number] : 1950 Acct:[id number] Age/Sex: 71 / M Date of Service: 08/29/21 Loc: ED Accession Number: [id number] ?? Procedure: XR pelvis 1-2V Ordering Provider: Emy Dukes D.O. PROCEDURE:? XR PELVIS 1-2V ? INDICATIONS:? fall down stairs v syncope ? TECHNIQUE:? 1 view(s) of the pelvis acquired.? ? COMPARISON:? None. ? FINDINGS:? ? Bones:? No fractures or dislocations.? No suspicious bony lesions.? ? Soft tissues:? Visualized bowel gas pattern is normal.? No suspicious soft tissue calcifications.? ? IMPRESSION:? No fracture. No osseous lesion. If symptoms and/or clinical suspicion for pathology persists, further assessment with repeat radiographs (7-10 days) or advanced imaging (e.g. CT, MRI or bone scan) should be considered. ? ? Dictated by: Luana Devries MD, PhD on 08/29/2021 at 18:51 ? ? Approved by: Luana Devries MD, PhD on 08/29/2021 at 18:52?? ECG Data Attestation: I personally reviewed and interpreted this ECG as follows: Prior ECG tracings: not available for review Interpretation: Sinus bradycardia rate of 59 ME 184 QRS of 96 and QTC of 447. No acute ST changes appreciated. No acute changes 04/19/21. MDM Narrative Medical decision making narrative: This is a 71-year-old male who was a unwitnessed but heard fall on aspirin. Unclear if patient had syncopal episode versus a fall vs other. He does state that he had approximately a pint of alcohol today. Imaging, EKG and labs obtained. Imaging shows no acute changes. EKG also shows no acute changes. Labs showed elevated alcohol. Macrocytosis and slightly low platelets. Patient does have elevation of LFTs at 147. and 103 with otherwise reassuring labs. Patient continues to be asymptomatic in the department. On initial ambulatory trial he still quite off balance. On subsequent trials later during the patient's stay he is able to ambulate with a steady gait. He does admit to drinking more alcohol and he likely should on a regular basis. Patient was medically cleared. His partner, Griffin was in contact with nursing staff and came to pick the patient up and drive him home. Discharge Plan Departure Patient Disposition: Home Clinical Impression: Abrasion of scalp, Elevated LFTs, Fall, Alcohol use Instructions: DI for Alcohol Use Disorder Activity Restrictions/Additional Instructions: Follow up with your physician for recheck. Imaging, labs and EKG are reassuring. Your liver enzymes are mildly elevated today this is likely related to your alcohol use. Your platelets are also slightly low and this is also likely related alcohol use. If you are interested in resources for assistance with alcohol abuse, you can call our social insurance analyst in the ED and ask to leave a message at [phone]. Her name is Milady and she can provide options or resources. Please return for new confusion, altered mental status, severe headaches, persistent vomiting, black or bloody stools, numbness, tingling or weakness or other new or concerning symptoms.
--- NOTE | 2021-08-29 18:34 | DI.CT.S_ITS ---
PROCEDURE: CT HEAD/BRAIN WO CON INDICATIONS: fall v syncope TECHNIQUE: Noncontrast 4.5 mm thick angled axial sections acquired from the foramen magnum to the vertex, with coronal and sagittal reformats. For radiation dose reduction, the following was used: automated exposure control, adjustment of mA and/or kV according to patient size. COMPARISON: None. FINDINGS: Image quality: Excellent. CSF spaces: Basal cisterns are patent. No extra-axial fluid collections. The ventricles are symmetric in size and shape. Brain: No intracranial bleeds or masses. There is cerebral volume loss for age, with resultant ventricular and sulcal prominence. There are periventricular and deep white matter chronic small vessel ischemic changes. There is intracranial internal carotid artery and vertebral artery atherosclerosis. Skull and face: Calvarium and visualized facial bones appear intact, without suspicious lesions. Small right parietal scalp contusion. Sinuses: Mild mucosal thickening in the maxillary sinuses. The mastoids are clear. IMPRESSION: No acute intracranial disease process. Dictated by: Luana Devries MD, PhD on 08/29/2021 at 19:10 Approved by: Luana Devries MD, PhD on 08/29/2021 at 19:12
[2021-08-29 18:49] LABS: Add Manual Diff / Slide Review NO; Basophils Absolute Auto 100 /uL (0-100); Eosinophils Absolute Auto 0 /uL (0-450); Eosinophils Percent Auto 0.7 % (2-4); Hematocrit 48.4 % (41-53); Hemoglobin 16.3 g/dL (13.5-17.5); Lymphocytes Absolute Auto 2800 /uL (1100-4500); Lymphocytes Percent Auto 44.5 % (25-40); Mean Corpuscular HGB Conc 33.6 % (30-36); Mean Corpuscular Hemoglobin 34.9 PG (26-34); Mean Corpuscular Volume 103.8 fL (80-100); Monocytes Absolute Auto 700 /uL (0-900); Monocytes Percent Auto 11.4 % (3-14); Neutrophils Absolute Auto 2700 /uL (1500-7000); Neutrophils Percent Auto 42.4 % (50-75); Platelet Count 148 X10^3/uL (150-400); Red Blood Cell Count 4.66 X10^6/uL (4.5-5.9); Red Cell Distribution Width 13.5 % (11.6-14.8); White Blood Cell Count 6.4 X10^3/uL (4.5-11.0)
[2021-08-29 18:50] LABS: INR 1.1 (0.9-1.3); Prothrombin Time 11.9 SECONDS (10.1-12.7)
[2021-08-29 18:53] LABS: PTT Partial Thromboplastin Tim 33 SECONDS (26.4-36.2)
[2021-08-29] MEDS: SODIUM CHLORIDE 0.9% 1,000 ML 150 ML IV (18:58)
[2021-08-29] MEDS: TET,DIPH,PERTUSS(ACELL),VAC/PF 0.5 ML SYRINGE IM (18:58)
[2021-08-29 19:17] LABS: Alanine Aminotransferase 103 IU/L (<50); Albumin 4.4 g/dL (3.5-5.0); Albumin Globulin Ratio 1.4 (1.0-2.8); Alkaline Phosphatase 93 U/L (38-126); Aspartate Aminotransferase 147 IU/L (17-59); BUN Creatinine Ratio 13.6 (6-22); Bilirubin Total 1.2 mg/dL (0.2-1.3); Blood Urea Nitrogen 8 mg/dL (9-20); Calcium 9.2 mg/dL (8.4-10.2); Carbon Dioxide 26 mmol/L (22-32); Chloride 100 mmol/L (98-107); Creatine Kinase 173 U/L (55-170); Estimated Glomerular Filt Rate > 60.0 mL/min (>60); Globulin 3.1 g/dL (1.7-4.1); Glucose 95 mg/dL (80-110); HEMOLYSIS < 15 (0-50); Lipase 223 U/L (23-300); Potassium 3.9 mmol/L (3.4-5.1); Sodium 138 mmol/L (137-145); Total Protein 7.5 g/dL (6.3-8.2)
[2021-08-29 19:24] LABS: Ethanol (ETOH) 365 mg/dL
[2021-08-29 19:28] LABS: Troponin I < 0.012 ng/mL (0.01-0.034)
[2021-08-29 19:31] LABS: CKMB % Relative Index 0.7 % (1.5-5.0)
[2021-08-29 20:49] LABS: UR Morphine/Opiate cutoff 300 Negative (Negative); Ur Creatinine Normal (Normal); Ur Specific Gravity Normal (Normal); Urine Amphetamines Negative (Negative); Urine Barbiturates Negative (Negative); Urine Benzodiazepines Negative (Negative); Urine Cocaine Negative (Negative); Urine MDMA Negative (Negative); Urine Methadone Negative (Negative); Urine Methamphetamines Negative (Negative); Urine Oxycodone Negative (Negative); Urine Phencyclidine Negative (Negative); Urine Tetrahydrocannabinol Negative (Negative); Urine Tricyclic Antidepressant Negative (Negative); Urine pH Normal (Normal)
--- NOTE | 2021-09-21 12:57 | PC.NURSE ---
late entry per RN IV fluids DC'd at 2200 prior to discharge
== END 2021-08-29 22:42 | disposition home or self-care (01) ==
PROVIDERS: Emergency Provider Emergency Medicine
DX: S00.01XA Abrasion of scalp, initial encounter (principal); R79.89 Other specified abnormal findings of blood chemistry; Z72.89 Other problems related to lifestyle; Z79.82 Long term (current) use of aspirin; Z20.822 Contact with and (suspected) exposure to COVID-19; R41.0 Disorientation, unspecified; Z23 Encounter for immunization; R00.1 Bradycardia, unspecified
CPT/HCPCS: 36415; 70450; 71045; 72125; 72170; 80053; 80305; 80320; 81003; 82550; 82553; 83690; 84484; 85025; 85610; 85730; 86850; 86900; 86901; 90471; 93005; 93010; 96360; 96361; 99285; 90715

== ENCOUNTER 2022-06-03 10:15 | Outpatient (RCR) | payer MEDICARE, BC, SELFPAY | END 2022-06-03 14:00 | LOC: CAR 10:15 | PROVIDERS: Referring Provider Internal Medicine Cardiovascular Disease; Visit Provider Internal Medicine Cardiovascular Disease | DX: Z95.2 Presence of prosthetic heart valve (principal) | CPT/HCPCS: 93798 ==

== ENCOUNTER → 2023-02-24 14:51 | Outpatient (CLI) | payer MEDICARE, BC, SELFPAY ==
[2023-02-24 16:53] LABS: Alanine Aminotransferase 27 IU/L (<50); Albumin 4.2 g/dL (3.5-5.0); Albumin Globulin Ratio 1.3 (1.0-2.8); Alkaline Phosphatase 71 U/L (38-126); Aspartate Aminotransferase 34 IU/L (17-59); BUN Creatinine Ratio 8.1 (6-22); Bilirubin Total 1.2 mg/dL (0.2-1.3); Blood Urea Nitrogen 8 mg/dL (9-20); Calcium 9.3 mg/dL (8.4-10.2); Carbon Dioxide 26 mmol/L (22-32); Chloride 87 mmol/L (98-107); Estimated Glomerular Filt Rate > 60 mL/min (>60); Globulin 3.3 g/dL (1.7-4.1); Glucose 88 mg/dL (80-110); HEMOLYSIS < 15 (0-50); Potassium 4.2 mmol/L (3.4-5.1); Sodium 122 mmol/L (137-145); Total Protein 7.5 g/dL (6.3-8.2)
== END ==
PROVIDERS: Referring Provider Hospitalist; Visit Provider Hospitalist
DX: N17.9 Acute kidney failure, unspecified (principal)
CPT/HCPCS: 36415; 80053

== ENCOUNTER 2023-02-27 10:24 | Emergency (ER) | payer MEDICARE, BC, SELFPAY ==
[2023-02-27 10:28] VITALS: BP 155/81; PULSE 81; RESP 15; TEMP 36.1; O2SAT 99; BMI 27.4
--- NOTE | 2023-02-27 10:28 | ED.GENADULT ---
HPI - General Adult General Chief complaint: Recheck/Abnormal Lab/Rx Stated complaint: sodium level low Time Seen by Provider: 02/27/23 10:27 History of Present Illness HPI narrative: 73-year-old male nonsmoker with history of hypertension and hyperlipidemia, prior alcohol use presents for evaluation of abnormal labs. He states that he had routine labs that have been ordered by his primary care provider [place] of [place]. He states that his doctor called him today and told him to present to the emergency department because his sodium was low. The patient denies any symptoms whatsoever such as dizziness, weakness or lightheadedness. He denies any confusion, extremity numbness, tingling or weakness. He is had no nausea, vomiting or diarrhea. He denies the use of any diuretics. He states that he drinks a fair amount of water but has not changed his diet in any meaningful way recently. Related Data Allergies Allergy/AdvReac Type Severity Reaction Status Date / Time No Known Drug Allergies Allergy Verified 02/27/23 10:33 Patient History Medical History Atrial fibrillation Social History Smoking Status: Unknown if ever smoked Smoking Status: Unknown if ever smoked alcohol intake frequency: holidays/special occasions only Substance Use Type: does not use Exam Narrative Exam Narrative: GENERAL: [73] year old patient appears stated age. Well-developed patient, in mild distress. HEAD: Atraumatic. Normocephalic. EYES: Pupils equal round and reactive. Extraocular motions intact. No scleral icterus. No injection or drainage. ENT: Nose without bleeding, purulent drainage. Throat without erythema, tonsillar hypertrophy or exudate. Airway patent. NECK: Trachea midline. Non tender CARDIOVASCULAR: Regular rate and rhythm without murmurs, gallops, or rubs. RESPIRATORY: Clear to auscultation. Breath sounds equal bilaterally. No wheezes, rales, or rhonchi. GASTROINTESTINAL: Abdomen soft, non-tender, nondistended. EXTREMITIES: No edema or joint tenderness. BACK: Nontender without deformity or crepitance. No flank tenderness. NEURO: AOx3. SKIN: No rash or erythema of visible areas Initial Vital Signs Initial Vital Signs: Vital Signs Temperature 97.0 F L 02/27/23 10:28 Pulse Rate 81 04/13/23 10:28 Respiratory Rate 15 02/27/23 10:28 Blood Pressure 155/81 H 02/27/23 10:28 Pulse Oximetry 99 02/27/23 10:28 Oxygen Delivery Method Room Air 02/27/23 10:28 Course Orders Ordered: ED Orders 02/27/23 10:40 Complete Blood Count AUTO DIFF Stat Comprehensive Metabolic Panel Stat Vital Signs Vital signs: Vital Signs - 8 hr 02/27/23 11:41 Pulse Rate 74 Respiratory Rate 18 Blood Pressure 142/79 H Pulse Oximetry 99 Oxygen Delivery Method Room Air Medical Decision Making Lab Data 02/27/23 10:40 02/27/23 10:40 Labs: Lab Results 02/27/23 02/27/23 Range/Units 10:40 10:40 WBC 5.9 (4.5-11.0) X10^3/uL RBC 4.25 L (4.5-5.9) X10^6/uL Hgb 13.5 (13.5-17.5) g/dL Hct 39.2 L (41-53) % MCV 92.1 (80-100) fL MCH 31.6 (26-34) PG MCHC 34.4 (30-36) % RDW 19.0 H (11.6-14.8) % Plt Count 164 (150-400) X10^3/uL Neut % (Auto) 49.5 L (50-75) % Lymph % (Auto) 37.0 (25-40) % [place] % (Auto) 11.8 (3-14) % Eos % (Auto) 1.1 L (2-4) % Baso % (Auto) 0.6 (0-2) % Neut # (Auto) 2900 (3807-3516) /uL Lymph # (Auto) 2200 (8749-9490) /uL [place] # (Auto) 700 (0-900) /uL Eos # (Auto) 100 (0-450) /uL Baso # (Auto) 0 (0-100) /uL Sodium 126 L (137-145) mmol/L Potassium 4.1 (3.4-5.1) mmol/L Chloride 92 L (98-107) mmol/L Carbon Dioxide 25 (22-32) mmol/L BUN 7 L (9-20) mg/dL Creatinine 1.03 (0.66-1.25) mg/dL Estimated GFR > 60 (>60) mL/min BUN/Creatinine Ratio 6.8 (6-22) Glucose 142 H (80-110) mg/dL Calcium 9.2 (8.4-10.2) mg/dL Total Bilirubin 0.9 (0.2-1.3) mg/dL AST 39 (17-59) IU/L ALT 29 (<50) IU/L Alkaline Phosphatase 72 (38-126) U/L Total Protein 8.1 (6.3-8.2) g/dL Albumin 4.4 (3.5-5.0) g/dL Globulin 3.7 (1.7-4.1) g/dL Albumin/Globulin Ratio 1.2 (1.0-2.8) MDM Narrative Medical decision making narrative: [73] year old patient presents with report of abnormal labs in the absence of any symptoms Multiple etiologies for patient's symptoms considered including, but not limited to: [Hyponatremia due to medications, oral intake of water versus other] Prior Charts reviewed in our EMR Primary Historian: patient Labs reviewed and interpreted by myself: Sodium today is 126, a few days ago when drawn it was 122, patient states that he routinely is low in the mid to upper 120s. He is completely asymptomatic and well-appearing Patient is completely asymptomatic, he takes no diuretics, he has had no vomiting. He denies dizziness, weakness or lightheadedness. Sodium is improved over prior and back to within his normal. There is no indication for further evaluation at this time. Findings and discharge diagnosis discussed with patient/family followed by verbalization of understanding Return precautions discussed with patient/family whom verbalize understanding of diagnosis and plan Discharge Plan Departure Patient Disposition: Home Clinical Impression: Acute hyponatremia Instructions: Hyponatremia-Adult Activity Restrictions/Additional Instructions: *You have been diagnosed with [hyponatremia. Your history and physical exam are very reassuring. Your sodium today is 126, when drawn a few days ago it was 122. There is little to do at this point, particularly given your lack of symtpoms *What to do: *Please continue to take your regular medications as directed. *Please follow up with your primary care provider in 2-3 days, call for an appointment. Let them know you were seen in the Emergency Department and that we ask that you be seen in follow up. We will electronically transmit a record of today's note if your PCP is in our system *If you do not have a primary care provider please contact the [facility] Resource line at [phone]. They will ask some questions about your medical history and help get you set up with a doctor in the community. *Return to Emergency Department if you should have any new, worsening or concerning symptoms, such as [fever greater than 101 F, shaking chills, worsening pain, persistent vomiting or other bothersome symptoms] Referrals: Miscellaneous,Doctor, MD [Primary Care Provider] - Stand Alone Forms: Patient Portal/API
[2023-02-27 10:52] LABS: Add Manual Diff / Slide Review NO; Basophils Absolute Auto 0 /uL (0-100); Basophils Percent Auto 0.6 % (0-2); Eosinophils Absolute Auto 100 /uL (0-450); Eosinophils Percent Auto 1.1 % (2-4); Hematocrit 39.2 % (41-53); Hemoglobin 13.5 g/dL (13.5-17.5); Lymphocytes Absolute Auto 2200 /uL (1100-4500); Mean Corpuscular HGB Conc 34.4 % (30-36); Mean Corpuscular Hemoglobin 31.6 PG (26-34); Mean Corpuscular Volume 92.1 fL (80-100); Monocytes Absolute Auto 700 /uL (0-900); Monocytes Percent Auto 11.8 % (3-14); Neutrophils Absolute Auto 2900 /uL (1500-7000); Neutrophils Percent Auto 49.5 % (50-75); Platelet Count 164 X10^3/uL (150-400); Red Blood Cell Count 4.25 X10^6/uL (4.5-5.9); White Blood Cell Count 5.9 X10^3/uL (4.5-11.0)
[2023-02-27 11:12] LABS: Alanine Aminotransferase 29 IU/L (<50); Albumin 4.4 g/dL (3.5-5.0); Albumin Globulin Ratio 1.2 (1.0-2.8); Alkaline Phosphatase 72 U/L (38-126); Aspartate Aminotransferase 39 IU/L (17-59); BUN Creatinine Ratio 6.8 (6-22); Bilirubin Total 0.9 mg/dL (0.2-1.3); Blood Urea Nitrogen 7 mg/dL (9-20); Calcium 9.2 mg/dL (8.4-10.2); Carbon Dioxide 25 mmol/L (22-32); Chloride 92 mmol/L (98-107); Estimated Glomerular Filt Rate > 60 mL/min (>60); Globulin 3.7 g/dL (1.7-4.1); Glucose 142 mg/dL (80-110); HEMOLYSIS < 15 (0-50); Potassium 4.1 mmol/L (3.4-5.1); Sodium 126 mmol/L (137-145); Total Protein 8.1 g/dL (6.3-8.2)
[2023-02-27 11:41] VITALS: BP 142/79; PULSE 74; RESP 18; O2SAT 99
== END 2023-02-27 11:42 | disposition home or self-care (01) ==
PROVIDERS: Emergency Provider Emergency Medicine
DX: E87.1 Hypo-osmolality and hyponatremia (principal)
CPT/HCPCS: 36415; 80053; 85025; 99283

== ENCOUNTER → 2023-06-18 12:55 | Outpatient (CLI) | payer MEDICARE, BC, SELFPAY ==
[2023-06-18 13:32] LABS: Add Manual Diff / Slide Review NO; Basophils Absolute Auto 0 /uL (0-100); Basophils Percent Auto 0.5 % (0-2); Eosinophils Absolute Auto 0 /uL (0-450); Eosinophils Percent Auto 0.6 % (2-4); Hemoglobin 13.1 g/dL (13.5-17.5); Lymphocytes Absolute Auto 1500 /uL (1100-4500); Lymphocytes Percent Auto 26.6 % (25-40); Mean Corpuscular HGB Conc 34.5 % (30-36); Mean Corpuscular Hemoglobin 32.8 PG (26-34); Monocytes Absolute Auto 800 /uL (0-900); Monocytes Percent Auto 13.3 % (3-14); Neutrophils Absolute Auto 3400 /uL (1500-7000); Platelet Count 98 X10^3/uL (150-400); Red Cell Distribution Width 16.6 % (11.6-14.8); White Blood Cell Count 5.7 X10^3/uL (4.5-11.0)
[2023-06-18 13:40] LABS: BUN Creatinine Ratio 6.7 (6-22); Blood Urea Nitrogen 25 mg/dL (9-20); Calcium 9.6 mg/dL (8.4-10.2); Carbon Dioxide 24 mmol/L (22-32); Chloride 102 mmol/L (98-107); Cholesterol 154 mg/dL (140-199); Estimated Glomerular Filt Rate 16 mL/min (>60); Glucose 89 mg/dL (80-110); HDL Cholesterol 103 mg/dL (40-60); HEMOLYSIS < 15 (0-50); LDL Cholesterol Calculated 40 mg/dL (<100); Potassium 3.1 mmol/L (3.4-5.1); Sodium 138 mmol/L (137-145); Triglycerides 56 mg/dL (35-150)
== END ==
PROVIDERS: Referring Provider Internal Medicine Cardiovascular Disease; Visit Provider Internal Medicine Cardiovascular Disease
DX: E78.5 Hyperlipidemia, unspecified (principal); I10 Essential (primary) hypertension
CPT/HCPCS: 36415; 80048; 80061; 85025

== ENCOUNTER → 2023-06-26 07:53 | Outpatient (CLI) | payer MEDICARE, BC, SELFPAY ==
[2023-06-26 09:11] LABS: Albumin 3.9 g/dL (3.5-5.0); HEMOLYSIS < 15 (0-50)
[2023-06-27 08:46] LABS: BUN Creatinine Ratio 9.8 (6-22); Blood Urea Nitrogen 23 mg/dL (9-20); Calcium 8.9 mg/dL (8.4-10.2); Carbon Dioxide 27 mmol/L (22-32); Chloride 92 mmol/L (98-107); Estimated Glomerular Filt Rate 29 mL/min (>60); Glucose 81 mg/dL (80-110); Phosphorous 2.3 mg/dL (2.3-3.7); Sodium 131 mmol/L (137-145)
== END ==
PROVIDERS: Referring Provider Internal Medicine Cardiovascular Disease; Visit Provider Internal Medicine Cardiovascular Disease
DX: N28.9 Disorder of kidney and ureter, unspecified (principal)
CPT/HCPCS: 36415; 80069; 80076

== ENCOUNTER 2023-07-26 19:46 | Emergency (ER) | payer MEDICARE, BC, SELFPAY ==
[2023-07-26] VITALS (37 sets, daily range): BP systolic 132–195; BP diastolic 70–90; PULSE 70–106; RESP 9–34; TEMP 36.6–36.8; O2SAT 93–100; BMI 27.8
--- NOTE | 2023-07-26 19:53 | DI.CT.S_ITS ---
PROCEDURE: CT CERVICAL SPINE WO CON INDICATIONS: Fall. TECHNIQUE: Noncontrast 3 mm thick sections acquired from the skull base to the T4 level. Sagittal and coronal reformats were then constructed. For radiation dose reduction, the following was used: automated exposure control, adjustment of mA and/or kV according to patient size. COMPARISON: [facility], CT, CT CERVICAL SPINE WO CON, 08/29/2021, 18:40. FINDINGS: Image quality: Excellent. Bones: No fractures or dislocations. Visualized superior ribs are intact. Soft tissues: Prevertebral soft tissues are normal in thickness. No paravertebral hematomas. No apical pneumothoraces. Please refer to head CT report from same day discussing posttraumatic intracranial hemorrhage. IMPRESSION: No acute trauma to the cervical spine. Intracranial posttraumatic hemorrhage is described during CT report of head same day. Dictated by: Dhaval Evans M.D. on 07/26/2023 at 20:28 Approved by: Dhaval Evans M.D. on 07/26/2023 at 20:28
--- NOTE | 2023-07-26 19:53 | DI.CT.S_ITS ---
PROCEDURE: CT HEAD/BRAIN WO CON INDICATIONS: Fall on blood thinners TECHNIQUE: Noncontrast 4.5 mm thick angled axial sections acquired from the foramen magnum to the vertex, with coronal and sagittal reformats. For radiation dose reduction, the following was used: automated exposure control, adjustment of mA and/or kV according to patient size. COMPARISON: [facility], CT, CT CERVICAL SPINE WO CON, 07/26/2023, 19:56. [facility], CT, CT HEAD/BRAIN WO CON, 08/29/2021, 18:40. FINDINGS: Image quality: Excellent. CSF spaces: Basal cisterns are patent. No extra-axial fluid collections. The ventricles are asymmetric in size and shape mildly smaller on the left due to mass effect from a combination of a thin left frontal subdural hemorrhage in addition to subarachnoid hemorrhage into the inter hemispheric falx area, interdigitating between the sulci of the frontal lobes bilaterally greater on the left than the right, and also extending into the basilar cisterns and subarachnoid space at the anterior inferior border of the left temporal lobe, but intraventricular hemorrhage is not seen. There is slight mass effect shifting the midline falx from left to right anteriorly.. Brain: No intracranial masses. Superimposed there is cerebral volume loss for age, with resultant ventricular and sulcal prominence. There are periventricular and deep white matter chronic small vessel ischemic changes. There is intracranial internal carotid artery atherosclerosis. Skull and face: Calvarium and visualized facial bones appear intact, without suspicious lesions. Sinuses: Visualized sinuses and mastoids are clear. IMPRESSION: Posttraumatic combined subarachnoid hemorrhage and a thin left frontal region subdural hemorrhage is superimposed, with mild mass effect deviating the midline falx from left to right. Slight compression of the left lateral ventricle. A small amount of hemorrhage in the subarachnoid space extends into the basilar cisterns including along the right posterolateral border of the pontine portion of the brainstem. No calvarial fracture is found, no facial trauma or hemorrhage is seen. Findings immediately called to and discussed with the emergency room physician caring for the patient Dictated by: Dhaval Evans M.D. on 07/26/2023 at 20:21 Approved by: Dhaval Evans M.D. on 07/26/2023 at 20:26
--- NOTE | 2023-07-26 20:21 | ED.GENADULT ---
HPI - General Adult General Chief complaint: Trauma Stated complaint: fall down 9 steps Time Seen by Provider: 07/26/23 19:53 Source: patient and EMS Mode of arrival: EMS Limitations: altered mental status History of Present Illness HPI narrative: Patient is a 73-year-old male. Arrives to the emergency department in a cervical collar and on a backboard for evaluation of injuries that he sustained with a reported fall down a possible 9 stairs. It was reported positive alcohol intake. Patient was maintaining on respirations. Was following commands although was obviously intoxicated. Had no reported complaints. No signs of external injuries. HPI and review of systems limited secondary to his alcohol intoxication. Related Data Home Medications Medication Instructions Recorded Confirmed atorvastatin 80 mg tablet 80 mg PO DAILY 07/26/23 07/26/23 olmesartan 40 mg tablet 40 mg PO DAILY 07/26/23 07/26/23 omeprazole 10 mg capsule,delayed 10 mg PO DAILY PRN Hiccups 07/26/23 07/26/23 release potassium chloride 20 mEq 20 meq PO DAILY 07/26/23 07/26/23 tablet,extended release(part/cryst) Allergies Allergy/AdvReac Type Severity Reaction Status Date / Time No Known Drug Allergies Allergy Verified 07/26/23 19:59 Review of Systems Review of Systems Narrative: Limited secondary to his alcohol intoxication however Patient denies Chest pain Shortness of breath Abdominal pain Headache Extremity pain Patient History Medical History Atrial fibrillation Social History Smoking Status: Unknown if ever smoked Smoking Status: Unknown if ever smoked alcohol intake frequency: holidays/special occasions only Substance Use Type: does not use Exam Initial Vital Signs Initial Vital Signs: Vital Signs Temperature 97.8 F 07/26/23 19:45 Pulse Rate 76 07/26/23 19:45 Respiratory Rate 18 07/26/23 19:45 Blood Pressure 132/70 07/26/23 19:45 Pulse Oximetry 95 07/26/23 19:45 Oxygen Delivery Method Room Air 07/26/23 19:45 Const General: No acute distress and No ill appearing HENMT Head: normal to inspection and normocephalic Eyes Pupils: PERRL and pupil size bilaterally 4 Chest Chest: No crepitus Resp Effort & Inspection: normal respiratory effort Auscultation: clear to auscultation bilaterally Cardio Rate: regular rate Rhythm: regular rhythm GI Inspection: normal to inspection and non-distended Palpation: soft, No firm and No guarding Back/Spine/Pelvis Cervical Spine: collar present Thoracic/Lumbar Spine: No thoracic spinal tenderness and No lumbar spinal tenderness Skin Other: No bruising noted Neuro Other: Patient was following commands. Opens eyes spontaneously, states he knows where he is but could not specifically state that he was in the hospital. Extrem Other: No gross deformities Procedures Intubation Time out performed: Yes sedative: Etomidate Mg Given: 20 paralytic: Succinylcholine Mg Given: 120 Laryngoscope: other (Video) ET Tube Size: 7.5 ET Tube Uncuffed: No Tube Secured Depth (cm): 21 Tube Secured Location: teeth Tube Placement Confirmation: Visualized tube passing through cords, Equal breath sounds bilaterally, Confirmation by capnometry and Chest Xray Patient Tolerated Procedure: Well Intubation Complications: none Scores GCS Phillip coma scale eye opening: Spontaneous [place] coma scale verbal response: Confused [place] coma scale motor response: Obey commands Phillip coma scale total score: 14 Course Orders Ordered: ED Orders 07/26/23 19:53 CT cervical spine wo con Stat CT head/brain wo con Stat 07/26/23 20:15 Complete Blood Count AUTO DIFF Stat Comprehensive Metabolic Panel Stat ETOH [Ethanol (ETOH)] Stat Lipase Stat PTT Partial Thromboplastin Miguel Stat Prothrombin Time INR Stat 07/26/23 20:22 EKG-12 Lead Stat 07/26/23 20:25 CT chest abd pel w con Stat 07/26/23 20:52 COVID19 -Nasal RAPID Stat 07/26/23 21:05 XR chest 1V Stat Propofol (Propofol) 1,000 mg in 100 mls @ 2.49 mls/hr IV TITRATE NATALI; Protocol Last Admin: 07/26/23 21:05 Dose: 10 mcg/kg/min, 4.98 mls/hr Documented By: SILVER Sodium Chloride (Normal Saline 0.9%) 1,000 mls @ 150 mls/hr IV BOLUS ONE Stop: 07/27/23 03:41 Last Admin: 07/26/23 21:03 Dose: 150 mls/hr Documented By: SILVER Discontinued Medications Etomidate (Etomidate 2 Mg/Ml 10 Ml Vial) 20 mg IV NOW ONE Stop: 07/26/23 20:58 Last Admin: 07/26/23 21:02 Dose: 20 mg Documented By: SILVER Levetiracetam 1,000 mg/ Sodium (Chloride) 110 mls @ 440 mls/hr IV NOW ONE Stop: 07/26/23 21:13 Last Admin: 07/26/23 21:19 Dose: 440 mls/hr Ondansetron HCl (Ondansetron 4 Mg/2 Ml Inj) 4 mg IV NOW ONE Stop: 07/26/23 20:53 Last Admin: 07/26/23 20:58 Dose: 4 mg Documented By: SILVER Succinylcholine Chloride (Succinylcholine 200 Mg/10 Ml Vial) 120 mg IV NOW ONE Stop: 07/26/23 20:58 Last Admin: 07/26/23 21:02 Dose: 120 mg Documented By: SILVER Vital Signs Vital signs: Vital Signs - 8 hr 07/26/23 19:45 07/26/23 19:51 07/26/23 20:10 Temperature 97.8 F Pulse Rate 76 79 75 Respiratory Rate 18 17 20 Blood Pressure 132/70 Pulse Oximetry 95 98 100 Oxygen Delivery Method Room Air 07/26/23 20:11 07/26/23 20:11 07/26/23 20:15 Temperature Pulse Rate 76 Respiratory Rate 17 Blood Pressure 152/82 H 153/83 H Pulse Oximetry 94 Oxygen Delivery Method Room Air 07/26/23 20:15 07/26/23 20:24 07/26/23 20:20 Temperature Pulse Rate 77 76 Respiratory Rate 19 15 Blood Pressure 156/84 H 162/83 H Pulse Oximetry 96 95 Oxygen Delivery Method Room Air 07/26/23 20:20 07/26/23 20:30 07/26/23 20:30 Temperature Pulse Rate 78 75 Respiratory Rate 21 18 Blood Pressure 155/82 H Pulse Oximetry 98 98 Oxygen Delivery Method Room Air 07/26/23 20:32 07/26/23 20:34 07/26/23 20:36 Temperature Pulse Rate 77 73 73 Respiratory Rate 18 18 20 Blood Pressure Pulse Oximetry 97 98 98 Oxygen Delivery Method 07/26/23 20:51 07/26/23 20:52 07/26/23 20:54 Temperature Pulse Rate 82 80 79 Respiratory Rate 34 H 20 18 Blood Pressure Pulse Oximetry 97 97 98 Oxygen Delivery Method 07/26/23 20:55 07/26/23 20:55 07/26/23 20:56 Temperature Pulse Rate 77 76 Respiratory Rate 18 18 Blood Pressure 160/76 H Pulse Oximetry 98 97 Oxygen Delivery Method 07/26/23 20:58 07/26/23 21:00 07/26/23 21:00 Temperature Pulse Rate 74 74 Respiratory Rate 18 17 Blood Pressure 170/83 H Pulse Oximetry 99 100 Oxygen Delivery Method 07/26/23 21:02 07/26/23 21:03 07/26/23 21:03 Temperature Pulse Rate 75 78 Respiratory Rate 20 20 Blood Pressure 160/74 H Pulse Oximetry 100 100 Oxygen Delivery Method 07/26/23 21:04 07/26/23 21:05 07/26/23 21:05 Temperature Pulse Rate 80 84 Respiratory Rate 21 9 L Blood Pressure 187/90 H Pulse Oximetry 100 100 Oxygen Delivery Method 07/26/23 21:06 07/26/23 21:08 07/26/23 21:08 Temperature Pulse Rate 85 84 Respiratory Rate 13 15 Blood Pressure 186/85 H Pulse Oximetry 100 100 Oxygen Delivery Method 07/26/23 21:10 07/26/23 21:10 07/26/23 21:12 Temperature Pulse Rate 76 74 Respiratory Rate 22 Blood Pressure 173/84 H Pulse Oximetry 100 96 Oxygen Delivery Method 07/26/23 21:13 07/26/23 21:13 07/26/23 21:14 Temperature Pulse Rate 71 70 Respiratory Rate Blood Pressure 168/82 H Pulse Oximetry 94 93 Oxygen Delivery Method Mechanical Ventilation Medical Decision Making Medical Records Medical records reviewed: Yes I reviewed the patient's medical records. Lab Data Lab results reviewed: Yes I reviewed the patient's lab results. 07/26/23 20:15 07/26/23 20:15 Labs: Lab Results 07/26/23 07/26/23 07/26/23 Range/Units 20:15 20:15 20:15 WBC 6.3 (4.5-11.0) X10^3/uL RBC 3.10 L (4.5-5.9) X10^6/uL Hgb 11.1 L (13.5-17.5) g/dL Hct 32.1 L (41-53) % MCV 103.4 H (80-100) fL MCH 35.9 H (26-34) PG MCHC 34.7 (30-36) % RDW 21.1 H (11.6-14.8) % Plt Count 135 L (150-400) X10^3/uL Neut % (Auto) 55.0 (50-75) % Lymph % (Auto) 32.4 (25-40) % Foard % (Auto) 11.9 (3-14) % Eos % (Auto) 0.3 L (2-4) % Baso % (Auto) 0.4 (0-2) % Neut # (Auto) 3500 (1889-8551) /uL Lymph # (Auto) 2000 (1889-4697) /uL Foard # (Auto) 700 (0-900) /uL Eos # (Auto) 0 (0-450) /uL Baso # (Auto) 0 (0-100) /uL RBC Morphology See below Hypochromasia 1+ H Anisocytosis 2+ H PT 10.9 (10.1-12.7) SECONDS INR 1.0 (0.9-1.3) APTT 27 (26-36) SECONDS Sodium 123 L (137-145) mmol/L Potassium 4.1 (3.4-5.1) mmol/L Chloride 88 L (98-107) mmol/L Carbon Dioxide 23 (22-32) mmol/L BUN 6 L (9-20) mg/dL Creatinine 0.94 (0.66-1.25) mg/dL Estimated GFR > 60 (>60) mL/min BUN/Creatinine Ratio 6.4 (6-22) Glucose 94 (80-110) mg/dL Calcium 8.7 (8.4-10.2) mg/dL Total Bilirubin 1.3 (0.2-1.3) mg/dL AST 85 H (17-59) IU/L ALT 51 H (<50) IU/L Alkaline Phosphatase 78 (38-126) U/L Total Protein 7.1 (6.3-8.2) g/dL Albumin 4.1 (3.5-5.0) g/dL Globulin 3.0 (1.7-4.1) g/dL Albumin/Globulin Ratio 1.4 (1.0-2.8) Lipase 124 (23-300) U/L Ethyl Alcohol ( - 10) mg/dL SARS-CoV-2 (PCR) (Negative) 07/26/23 07/26/23 Range/Units 20:15 20:52 WBC (4.5-11.0) X10^3/uL RBC (4.5-5.9) X10^6/uL Hgb (13.5-17.5) g/dL Hct (41-53) % MCV (80-100) fL MCH (26-34) PG MCHC (30-36) % RDW (11.6-14.8) % Plt Count (150-400) X10^3/uL Neut % (Auto) (50-75) % Lymph % (Auto) (25-40) % Foard % (Auto) (3-14) % Eos % (Auto) (2-4) % Baso % (Auto) (0-2) % Neut # (Auto) (0877-9126) /uL Lymph # (Auto) (1834-6544) /uL Foard # (Auto) (0-900) /uL Eos # (Auto) (0-450) /uL Baso # (Auto) (0-100) /uL RBC Morphology Hypochromasia Anisocytosis PT (10.1-12.7) SECONDS INR (0.9-1.3) APTT (26-36) SECONDS Sodium (137-145) mmol/L Potassium (3.4-5.1) mmol/L Chloride (98-107) mmol/L Carbon Dioxide (22-32) mmol/L BUN (9-20) mg/dL Creatinine (0.66-1.25) mg/dL Estimated GFR (>60) mL/min BUN/Creatinine Ratio (6-22) Glucose (80-110) mg/dL Calcium (8.4-10.2) mg/dL Total Bilirubin (0.2-1.3) mg/dL AST (17-59) IU/L ALT (<50) IU/L Alkaline Phosphatase (38-126) U/L Total Protein (6.3-8.2) g/dL Albumin (3.5-5.0) g/dL Globulin (1.7-4.1) g/dL Albumin/Globulin Ratio (1.0-2.8) Lipase (23-300) U/L Ethyl Alcohol 347 H ( - 10) mg/dL SARS-CoV-2 (PCR) Negative (Negative) Imaging Data CT scan - head: Radiologist's Impression: PROCEDURE:? CT HEAD/BRAIN WO CON ? INDICATIONS:? Fall on blood thinners ? TECHNIQUE:? Noncontrast 4.5 mm thick angled axial sections acquired from the foramen magnum to the vertex, with coronal and sagittal reformats.? For radiation dose reduction, the following was used:? automated exposure control, adjustment of mA and/or kV according to patient size.? ? COMPARISON:? [facility], CT, CT CERVICAL SPINE WO CON, 07/26/2023, 19:56.? [facility], CT, CT HEAD/BRAIN WO CON, 08/29/2021, 18:40. ? FINDINGS:? Image quality:? Excellent.? ? CSF spaces:? Basal cisterns are patent.? No extra-axial fluid collections.? The ventricles are asymmetric in size and shape mildly smaller on the left due to mass effect from a combination of a thin left frontal subdural hemorrhage in addition to subarachnoid hemorrhage into the inter hemispheric falx area, interdigitating between the sulci of the frontal lobes bilaterally greater on the left than the right, and also extending into the basilar cisterns and subarachnoid space at the anterior inferior border of the left temporal lobe, but intraventricular hemorrhage is not seen.? There is slight mass effect shifting the midline falx from left to right anteriorly..? ? Brain:? No intracranial masses.? Superimposed there is cerebral volume loss for age, with resultant ventricular and sulcal prominence.? There are periventricular and deep white matter chronic small vessel ischemic changes.? There is intracranial internal carotid artery atherosclerosis.? ? Skull and face:? Calvarium and visualized facial bones appear intact, without suspicious lesions.? ? Sinuses:? Visualized sinuses and mastoids are clear.? ? IMPRESSION:? Posttraumatic combined subarachnoid hemorrhage and a thin left frontal region subdural hemorrhage is superimposed, with mild mass effect deviating the midline falx from left to right.? Slight compression of the left lateral ventricle.? A small amount of hemorrhage in the subarachnoid space extends into the basilar cisterns including along the right posterolateral border of the pontine portion of the brainstem. ? No calvarial fracture is found, no facial trauma or hemorrhage is seen. ? Findings immediately called to and discussed with the emergency room physician caring for the patient CT - cervical spine: Radiologist's Impression: PROCEDURE:? CT CERVICAL SPINE WO CON ? INDICATIONS:? Fall. ? TECHNIQUE:? Noncontrast 3 mm thick sections acquired from the skull base to the T4 level.? Sagittal and coronal reformats were then constructed.? For radiation dose reduction, the following was used:? automated exposure control, adjustment of mA and/or kV according to patient size.? ? COMPARISON:? [facility], CT, CT CERVICAL SPINE WO CON, 08/29/2021, 18:40. ? FINDINGS:? Image quality:? Excellent.? ? Bones:? No fractures or dislocations.? Visualized superior ribs are intact.? ? Soft tissues:? Prevertebral soft tissues are normal in thickness.? No paravertebral hematomas.? No apical pneumothoraces.? Please refer to head CT report from same day discussing posttraumatic intracranial hemorrhage. ? ? IMPRESSION:? No acute trauma to the cervical spine.? Intracranial posttraumatic hemorrhage is described during CT report of head same day. MDM Narrative Medical decision making narrative: Head CT shows subarachnoid and subdural hematoma. Presenting GCS 14. The patient is obviously intoxicated. This confirmed by an elevated alcohol level. There is some question as to whether not he is on anticoagulation. He has a prior diagnosis of atrial fibrillation. There is no anticoagulation noted on his medicine list. I can not confirm that he is on any blood thinners. Upon returning from the CT scan CT scans his GCS continued to decline. He did vomit 1 time. His pupils remained equal and reactive. Unsure as to whether not his declining GCS is related to his injury or alcohol or both. Decision was made to intubate to protect airway. Patient has not become tachycardic or had a change in his blood pressure. We will hold on any 3% normal saline or mannitol for now. I did discuss the case with [facility] who accepts the patient in transfer. Dr. Granados accepting physician. They recommend starting Keppra. Initially ET tube was secured at 21 at the teeth. After chest x-ray this was advanced 1 cm. Will proceed with transfer to Trauma Center. CT scan of chest abdomen pelvis still pending at the time of transfer. Critical Care Time Critical Care Time Critical Care Time: Yes Total Critical Care Time: 40 Attestation: The high probability of a clinically significant, sudden or life threatening deterioration of the [neurologic] system(s) required my full and direct attention, intervention and personal management. The aggregate critical care time was [40] minutes. This time is in addition to time spent performing reported procedures but includes the following: [x] Data Review and interpretation [x] Patient assessment and monitoring of vital signs [x] Documentation [x] Medication orders and management Discharge Plan Departure Patient Disposition: [facility] Clinical Impression: Traumatic subarachnoid hemorrhage, Subdural hemorrhage, Alcohol intoxication Prescriptions: No Action atorvastatin 80 mg tablet 80 mg PO DAILY potassium chloride 20 mEq tablet,ER particles/crystals 20 meq PO DAILY olmesartan 40 mg tablet 40 mg PO DAILY omeprazole 10 mg capsule,delayed release(DR/EC) 10 mg PO DAILY PRN (Reason: Hiccups) Referrals: Miscellaneous,Doctor, MD [Primary Care Provider] -
--- NOTE | 2023-07-26 20:25 | DI.CT.S_ITS ---
PROCEDURE: CT CHEST ABD PEL W CON INDICATIONS: altered fall down stairs TECHNIQUE: After the administration of intravenous contrast, 5 mm thick sections acquired from the lung apices to the symphysis. 5 mm coronal and sagittal reformats were performed, with additional 7 mm MIP reformats through the lungs. For radiation dose reduction, the following was used: automated exposure control, adjustment of mA and/or kV according to patient size. COMPARISON: [facility], CR, XR CHEST 1V, 08/29/2021, 18:29. FINDINGS: Image quality: Limited during visualization through the cervical thoracic junction area, due to patient motion artifact. CHEST: Lungs and pleura: No acute airspace opacities. No pleural effusions or pneumothorax. Central and peripheral airways appear patent and normal in caliber. Mediastinum: Heart size is normal. No pericardial effusion. No mediastinal or hilar adenopathy by size criteria. Thoracic aorta and central pulmonary arteries are normal in size. Esophagus is abnormal in caliber, mildly dilated, with retention of fluid within the esophagus most prominent at the middle 3rd of the esophageal course through the chest. Small hiatal hernia. Chest wall: No axillary or supraclavicular adenopathy by size criteria. Thyroid gland is not well seen . ABDOMEN: Solid organs: Liver is normal in size and enhancement. Gallbladder appears normal . Biliary system is nondilated. Pancreas enhances normally. Spleen is normal in size and enhancement. No adrenal nodules. Kidneys demonstrate normal size and enhancement, without hydronephrosis. Peritoneum and bowel: Bowel loops demonstrate normal wall thickness and caliber. No free fluid or air. At the gastric cardia there may be a mass, associated with the proximal gastric cardia as a potential cause for retention of secretions within the esophagus discussed above Nodes and vessels: No retroperitoneal or mesenteric adenopathy by size criteria. Aorta and inferior vena cava are normal in size. Miscellaneous: No ventral hernias. PELVIS: Genitourinary: Bladder wall thickness is normal. Miscellaneous: No inguinal hernias or adenopathy. Bones: No suspicious bony lesions. No vertebral body compression fractures. IMPRESSION: 1. No acute trauma found. 2. There is an unexpected finding of abnormal fluid mildly dilating the esophagus over its course through the chest. At the gastric cardia below the EG junction there is a possible mass, as potential etiology of the esophageal abnormality more superiorly. This is best seen on CT imaging series 2, centered on image number 44. More inferiorly the gastric wall appears normal. Follow-up endoscopy and/or upper GI examination appears warranted when clinically feasible. Dictated by: Dhaval Evans M.D. on 07/26/2023 at 21:14 Approved by: Dhaval Evans M.D. on 07/26/2023 at 21:21
[2023-07-26 20:34] LABS: Prothrombin Time 10.9 SECONDS (10.1-12.7)
[2023-07-26 20:36] LABS: Alanine Aminotransferase 51 IU/L (<50); Albumin 4.1 g/dL (3.5-5.0); Albumin Globulin Ratio 1.4 (1.0-2.8); Alkaline Phosphatase 78 U/L (38-126); Aspartate Aminotransferase 85 IU/L (17-59); BUN Creatinine Ratio 6.4 (6-22); Bilirubin Total 1.3 mg/dL (0.2-1.3); Blood Urea Nitrogen 6 mg/dL (9-20); Calcium 8.7 mg/dL (8.4-10.2); Carbon Dioxide 23 mmol/L (22-32); Chloride 88 mmol/L (98-107); Estimated Glomerular Filt Rate > 60 mL/min (>60); Glucose 94 mg/dL (80-110); HEMOLYSIS < 15 (0-50); Lipase 124 U/L (23-300); Potassium 4.1 mmol/L (3.4-5.1); Sodium 123 mmol/L (137-145); Total Protein 7.1 g/dL (6.3-8.2)
[2023-07-26 20:37] LABS: Add Manual Diff / Slide Review NO; Basophils Absolute Auto 0 /uL (0-100); Basophils Percent Auto 0.4 % (0-2); Eosinophils Absolute Auto 0 /uL (0-450); Eosinophils Percent Auto 0.3 % (2-4); Hematocrit 32.1 % (41-53); Hemoglobin 11.1 g/dL (13.5-17.5); Lymphocytes Absolute Auto 2000 /uL (1100-4500); Lymphocytes Percent Auto 32.4 % (25-40); Mean Corpuscular HGB Conc 34.7 % (30-36); Mean Corpuscular Hemoglobin 35.9 PG (26-34); Mean Corpuscular Volume 103.4 fL (80-100); Monocytes Absolute Auto 700 /uL (0-900); Monocytes Percent Auto 11.9 % (3-14); Neutrophils Absolute Auto 3500 /uL (1500-7000); PTT Partial Thromboplastin Tim 27 SECONDS (26-36); Platelet Count 135 X10^3/uL (150-400); Red Cell Distribution Width 21.1 % (11.6-14.8); White Blood Cell Count 6.3 X10^3/uL (4.5-11.0)
[2023-07-26 20:45] LABS: Ethanol (ETOH) 347 mg/dL
[2023-07-26 20:54] LABS: Anisocytosis 2+
[2023-07-26 20:56] LABS: Hypochromasia 1+
[2023-07-26] MEDS: ONDANSETRON 4 MG/2 ML INJ IV (20:58)
[2023-07-26] MEDS: ETOMIDATE 2 MG/ML 10 ML VIAL 20 MG IV (21:02)
[2023-07-26] MEDS: SUCCINYLCHOLINE 200 MG/10 ML VIAL 120 MG IV (21:02)
[2023-07-26] MEDS: SODIUM CHLORIDE 0.9% 1,000 ML 150 ML IV (21:03)
[2023-07-26] MEDS: propofoL 1,000 MG/100 ML VIAL 4.98 MG IV (21:05)
--- NOTE | 2023-07-26 21:05 | DI.RAD.S_ITS ---
PROCEDURE: XR CHEST 1V INDICATIONS: post intubation TECHNIQUE: One view of the chest was acquired. COMPARISON: [facility], CR, XR CHEST 1V, 08/29/2021, 18:29. [facility], CR, XR CHEST 1V, 03/21/2021, 10:40. FINDINGS: Surgical changes and devices: Stable over time. Esophagogastric tube tip extends into the gastric cardia. Lungs and pleura: Lungs are clear. No pleural effusions or pneumothorax. Mediastinum: Mediastinal contours appear normal. Heart size is normal. Bones and chest wall: No suspicious bony lesions. Overlying soft tissues appear unremarkable. IMPRESSION: No pneumonia found. Endotracheal tube has been placed with its tip just below the medial clavicular head level, and also an esophagogastric tube extends into the gastric cardia. Prior sternotomy, prior heart valve replacement. Dictated by: Dhaval Evans M.D. on 07/26/2023 at 21:31 Approved by: Dhaval Evans M.D. on 07/26/2023 at 21:33
[2023-07-26 21:16] LABS: COVID19 -Nasal RAPID Negative (Negative)
[2023-07-26] MEDS: levETIRAcetam 1,000 MG in SODIUM CHLORIDE 0.9% 100 ML 440 MG IV (21:19)
--- NOTE | 2023-07-26 21:31 | PC.NURSE ---
Pt's watch and wallet given to partner who is currently a patient in the ED. Partner updated on pt plan of care, transfer, condition w/ verbalized understanding.
== END 2023-07-26 21:47 | disposition short-term general hospital (02) ==
PROVIDERS: Emergency Provider Emergency Medicine
DX: S06.6XAA Traumatic subarachnoid hemorrhage with loss of consciousness status unknown, initial encounter (principal); S06.5XAA Traumatic subdural hemorrhage with loss of consciousness status unknown, initial encounter; R07.9 Chest pain, unspecified; W10.9XXA Fall (on) (from) unspecified stairs and steps, initial encounter; F10.129 Alcohol abuse with intoxication, unspecified; Y90.8 Blood alcohol level of 240 mg/100 ml or more; Z20.822 Contact with and (suspected) exposure to COVID-19
CPT/HCPCS: 31500; 36415; 70450; 71045; 71260; 72125; 74177; 80053; 80320; 83690; 85025; 85610; 85730; 87635; 93005; 93010; 96361; 96374; 96375; 99285; 99291; C9803; G0390; J0330; J1953; J2405; J2704; Q9967